=== PATIENT | female | born 1940 | race Caucasian/White ===

== ENCOUNTER → 2016-06-08 | Outpatient (CLI) | payer MEDICARE, OTHER ==
--- NOTE | 2016-06-08 13:38 | RAD ---
EXAM: Right wrist, 4 views. HISTORY: Pain. COMPARISON: None. FINDINGS: Frontal, lateral, oblique and lingular views of the right wrist are obtained. There is mild triscaphe the and moderate first carpometacarpal joint space narrowing. There is right first metacarpal metacarpal subchondral sclerosis and moderate marginal spurring. This includes a prominent fragmented spur. There is wrist soft tissue swelling. No fracture is seen. IMPRESSION: 1. 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 2. Right wrist soft tissue swelling.
== END | disposition home or self-care (01) ==
LOC: DXRADRC 13:23
PROVIDERS: ATTEND Physician Assistant Medical
DX: M19.031 Primary osteoarthritis, right wrist (principal); M25.431 Effusion, right wrist; Z91.81 History of falling
CPT/HCPCS: 73110

== ENCOUNTER → 2016-06-30 | Outpatient (CLI) | payer MEDICARE, OTHER ==
--- NOTE | 2016-06-30 15:07 | RAD ---
Left knee, 3 views, 06/30/2016: History: Knee and lumbar pain The bony structures are demineralized. There is severe narrowing of the medial compartment of the knee joint with sclerosis and irregularity of the articular surfaces. There is moderate marginal spurring at the knee joint. There is mild chronic lateral subluxation of the tibia relative to the distal femur. There is severe narrowing at the patellofemoral articulation. Periarticular calcifications are compatible with multiple loose bodies. No acute fracture or dislocation is identified. IMPRESSION: 1. Severe degenerative change with multiple loose bodies in the knee joint. 2. No acute bony abnormality is detected. Lumbar spine, 5 views, 06/30/2016: History: Pain There is a minimal lumbar scoliosis. The lumbar vertebral heights are well-maintained. There is mild disc space narrowing and moderate spurring at multiple levels in the lumbar spine. There are moderate degenerative changes involving multiple facet joints bilaterally, most severe in the lower lumbar spine. There is a slight reverse spondylolisthesis at L2-3 and L3-4 due to facet joint arthropathy. No fracture is identified. Moderate aortic calcific plaquing is present. IMPRESSION: 1. Moderately severe multilevel degenerative change as described above. 2. No acute bony abnormality is detected.
== END | disposition home or self-care (01) ==
LOC: DXRADRC 10:24
PROVIDERS: ATTEND Physician Assistant
DX: M23.42 Loose body in knee, left knee (principal); M54.5 Low back pain
CPT/HCPCS: 72110; 73562

== ENCOUNTER → 2017-01-14 | Outpatient (CLI) | payer MEDICARE, OTHER ==
--- NOTE | 2017-01-27 15:15 | RAD ---
DATE: 01/14/2017 EXAM: MAMMO ALICIA SCREENING BILATERAL Bilateral Screening Digital 2D and 3D Mammogram HISTORY: Screening Mammogram COMPARISON: Screening mammogram 01/11/2015, 01/01/2014, 01/11/2013 This study was interpreted with the benefit of Computerized Aided Detection (CAD). The breast parenchyma shows scattered fibroglandular densities. Breast parenchyma level B. FINDINGS: Bilateral digital 2-D and 3-D tomosynthesis CC and MLO views. There is an asymmetry in the right breast, middle depth and 4 cm from the nipple only seen on the CC view. No suspicious mass, calcification or architectural distortion in the left breast. IMPRESSION: Asymmetry in the right breast, middle depth only seen on CC view. Diagnostic right breast mammogram to include spot compression CC and full field ML views. BI-RADS CATEGORY: 0 INCOMPLETE: NEEDS ADDITIONAL IMAGING EVALUATION AND/OR PRIOR MAMMOGRAMS FOR COMPARISON. RECOMMENDED FOLLOW-UP: ADD ADDITIONAL IMAGING PQRS compliance statement: Patient information was entered into a reminder system with a target due date for the next mammogram. Mammography is a sensitive method for finding small breast cancers, but it does not detect them all and is not a substitute for careful clinical examination. A negative mammogram does not negate a clinically suspicious finding and should not result in delay in biopsying a clinically suspicious abnormality. "Our facility is accredited by the [employer] Mammography Program."
== END | disposition home or self-care (01) ==
LOC: MAMMO 09:08
PROVIDERS: ATTEND Physician Assistant
DX: Z12.31 Encounter for screening mammogram for malignant neoplasm of breast (principal)
CPT/HCPCS: 77063; G0202; 77067

== ENCOUNTER → 2017-02-15 | Outpatient (CLI) | payer MEDICARE, OTHER ==
--- NOTE | 2017-02-15 15:26 | RAD ---
DATE: 02/15/2017 EXAM: DIGITAL DIAGNOSTIC RT, BREAST RIGHT HISTORY: Asymmetry right breast COMPARISON: 01/14/2017 This study was interpreted with the benefit of Computerized Aided Detection (CAD). FINDINGS: Breast Density: HETERO The breast parenchyma Is heterogeneouslyy dense, which could reduce sensitivity of mammography. Breast parenchyma level C. Spot views of the right breast demonstrates persistence of a small nodule in the right mid upper outer quadrant of the breast. Targeted views of the ultrasound demonstrated no definite evidence of mass or lesion in this region. IMPRESSION: Probably benign findings. Recommend right breast mammogram in 6 months. BI-RADS CATEGORY: 3 PROBABLE BENIGN-SHORT TERM F/U RECOMMENDED FOLLOW-UP: 6M 6 MONTH FOLLOW-UP PQRS compliance statement: Patient information was entered into a reminder system with a target due date 08/16/2017 for the next mammogram. Mammography is a sensitive method for finding small breast cancers, but it does not detect them all and is not a substitute for careful clinical examination. A negative mammogram does not negate a clinically suspicious finding and should not result in delay in biopsying a clinically suspicious abnormality. "Our facility is accredited by the [employer] Mammography Program."
== END | disposition home or self-care (01) ==
LOC: MAMMO 13:50
PROVIDERS: ATTEND Physician Assistant
DX: N64.89 Other specified disorders of breast (principal)
CPT/HCPCS: 76641; G0206; 77065

== ENCOUNTER 2017-07-07 10:41 | Observation (INO) | payer MEDICARE, OTHER ==
[~2017-07-07] VITALS: Ht 157.5 cm; Wt 69.4 kg
[2017-07-07] MEDS ORDERED: HYDROcodone/APAP 5/325MG 1 TAB TABLET PO ONE (11:15)
--- NOTE | 2017-07-07 11:26 | PHYS DOC ---
Past History Past Medical History: Anemia, Asthma Past Surgical History: Appendectomy, Cholecystectomy, Other Alcohol Use: None Drug Use: None Adult General Chief Complaint Chief Complaint: KNEE INJURY HPI HPI Patient is a 77 year old female who presents with left knee injury. The patient states this morning she tripped over her cat & fell forward onto left knee on concrete floor. Denies head trauma or loss of consciousness. No syncope contributing to this fall. Bearing weight with difficulty using a cane , since the time of injury. Denies other injuries. She had a previous arthroscopy but otherwise denies knee surgeries or injuries. She takes medication for left lower extremity arthritis. Denies syncope or lightheadedness contributing to fall. Review of Systems Review of Systems Constitutional: Denies fever or chills HENT: Denies nasal congestion or sore throat Respiratory: Denies cough or shortness of breath Cardiovascular: Denies chest pain or edema GI: Denies abdominal pain, nausea, vomiting Musculoskeletal: Reports knee pain Integument: Denies rash or skin lesions Neurologic: Denies headache, focal weakness or sensory changes All other systems were reviewed and found to be within normal limits, except as documented in this note. Current Medications Current Medications Current Medications Medications (Trade) Dose Ordered Sig/Teresa Start Time Stop Time Status Last Admin Dose Admin Acetaminophen/ Hydrocodone Bitart (Lortab 5/325) 1 tab 1X ONCE 07/07/17 11:15 07/07/17 11:17 DC 07/07/17 11:02 1 TAB Allergies Allergies Allergies Coded Allergies Type Severity Reaction Last Updated Verified No Known Drug Allergies 07/07/17 No Physical Exam Physical Exam Constitutional: Well developed, well nourished, no acute distress, non-toxic appearance. HENT: Normocephalic, atraumatic, bilateral external ears normal, oropharynx moist, nose normal. Eyes: conjunctiva normal, no discharge. Neck: supple, no stridor. Cardiovascular: no edema. Lungs & Thorax: no respiratory distress. Abdomen: nondistended. Skin: Warm, dry, no erythema, no rash. Back: No tenderness. Extremities: left knee mild effusion without deformity, diffuse anterior tenderness as well as medial & lateral joint line tenderness, able to flex/ extend & straight leg raise although all are limited by pain, negative anterior/ posterior drawer, stable to valgus/varus stress, dp/pt 2+, sensation intact to foot, moves toes. left hip no swelling or deformity but laterally there is tenderness, able to flex/extend also with pain. Neurologic: Alert and oriented X 3, no focal deficits noted. Psychologic: Affect normal, judgement normal, mood normal. Current Patient Data Vital Signs Vital Signs Date Time Temp Pulse Resp B/P (MAP) Pulse Ox O2 Delivery O2 Flow Rate FiO2 07/07/17 11:02 Room Air 07/07/17 10:55 97.5 71 16 98 EKG EKG [] Radiology/Procedures Radiology/Procedures PROCEDURE: HIP LEFT 2V WITH PELVIS KNEE LEFT 4V, HIP LEFT 2V WITH PELVIS Clinical Indication: FALL, LEFT KNEE PAIN, PAINFUL TO STRAIGHTEN LEG Comparison: Left knee, 3 views, June 30, 2016. Findings: Degenerative arthropathy of the bilateral hips. No acute pelvic fracture. No acute left hip fracture. Phleboliths in the pelvis. There is knee joint effusion. There is severe degenerative arthropathy of the knee, unchanged from prior study. There is a tiny lucency of the mid patella posteriorly that is not seen previously. Incomplete fracture cannot be excluded. IMPRESSION: 1. Tiny lucency of the mid patella posteriorly, cannot exclude incomplete fracture. 2. Small knee joint effusion. 3. No acute fracture of the left hip. Electronically signed by: Amadou Rivas MD (07/07/2017 11:47 AM) [id number] DICTATED AND SIGNED BY: AMADOU RIVAS MD DATE: 07/07/17 1140 PROCEDURE: CT PELVIS WO CONTRAST PQRS Compliance Statement: One or more of the following individualized dose reduction techniques were utilized for this examination: 1. Automated exposure control 2. Adjustment of the mA and/or kV according to patient size 3. Use of iterative reconstruction technique CT PELVIS WO CONTRAST Clinical Indication: FALL, left hip pain Comparison: Left hip radiographs, earlier same day. TECHNIQUE: Helical CT imaging of the pelvis is performed without IV contrast. Findings: There is facet hypertrophy in the lower lumbar spine. Minimal grade 1 anterolisthesis of L5 on S1. No acute pelvic fracture is identified. No acute hip fracture. Degenerative arthropathy of the hips. DJD of the symphysis pubis. Well-corticated lucency of the posterior and lateral left acetabulum. Similar less conspicuous finding is seen on the contralateral side. Finding probably degenerative or due to old injury. Sigmoid colon diverticulosis without inflammation. Urinary bladder is mildly distended, otherwise normal. Uterus surgically absent. No pelvic free fluid. IMPRESSION: No acute hip fracture. Electronically signed by: Amadou Rivas MD (07/07/2017 12:35 PM) [id number] DICTATED AND SIGNED BY: AMADOU RIVAS MD DATE: 07/07/177 PROCEDURE: CT LOWER EXTREMITY WO LEFT PQRS Compliance Statement: One or more of the following individualized dose reduction techniques were utilized for this examination: 1. Automated exposure control 2. Adjustment of the mA and/or kV according to patient size 3. Use of iterative reconstruction technique CT LOWER EXTREMITY WO LEFT Clinical Indication: FALL TODAY, RULE OUT POSSIBLE PATELLA FRATURE
PREVIOUS XRAYS DONE EARLIER TODAY Comparison: Left knee radiographs, earlier same day. TECHNIQUE: Helical CT imaging of the left knee is performed without IV contrast. Findings: There is large lipohemarthrosis. There is acute traumatic fracture of the patella. There is a nondisplaced vertically oriented fracture line, coronal image 8. There is a nondisplaced transverse fracture line posteriorly that is incompletely, does not reach the anterior cortex. This fracture is well seen on coronal image 12. Severe degenerative arthropathy of the knee. No acute fracture of the femur, tibia, or fibula. There are several loose joint bodies posteriorly. There is moderate Askew's cyst that contains loose joint body. IMPRESSION: 1. Acute traumatic nondisplaced fracture of the patella. There are transverse and vertical fracture lines. 2. Large lipohemarthrosis. 3. Severe degenerative arthropathy of the left knee. 4. There are several loose joint bodies. Electronically signed by: Amadou Rivas MD (07/07/2017 12:27 PM) [id number] DICTATED AND SIGNED BY: AMADOU RIVAS MD DATE: 07/07/17 1221[] Course & Med Decision Making Course & Med Decision Making Pertinent Labs and Imaging studies reviewed. (See chart for details) The patient presents with hip and knee injury. Initially she was just complaining of knee pain but on further evaluation she does have quite a bit of hip tenderness as well and is unable to bear weight. Neurovascularly intact. Obtained x-ray which shows no hip fracture, possible patellar abnormality. Obtain CT to evaluate for occult hip fracture as well as CT of the need to definitively identify fracture. She has a comminuted nondisplaced patellar fracture. Knee immobilizer was applied, neurovascularly intact after placement. The patient was highly motivated to go home rather than be admitted to the hospital. She is quite active for her age and lives in her own home. She became lightheaded and was unable to stand independently. I don't think this is a viable discharge plan and the patient agrees. Discussed with Dr. Wall, [place] orthopedic surgeon. Advises likely nonoperative management. He agrees with admission to the hospital due to inability to safely ambulate, but does not necessarily need inpatient orthopedic surgery consultation. Discussed with Dr. Pascual who agrees to admit to inpatient status for PT & pain management. The patient is admitted in stable condition. Dragon Disclaimer Dragon Disclaimer This electronic medical record was generated, in whole or in part, using a voice recognition dictation system. Departure Departure: Impression: Primary Impression: Patellar fracture Disposition: HOME, SELF-CARE Condition: STABLE Referrals: CLAY MONAHAN (PCP) Patient Instructions: Patellar Fracture, Adult Additional Instructions: You were seen in the emergency department today for patella (kneecap) fracture. Please wear the immobilizer, avoid weightbearing, keep elevated, apply ice. Use norco for severe pain. This medication can make you drowsy; do not drink alcohol or drive. Follow up in the orthopedic clinic with Dr. Wall - call [phone] to schedule an appointment. Come back for numbness/weakness, cold foot, severe pain, any otherwise worsening condition. Scripts Hydrocodone Bit/Acetaminophen (NORCO 5-325 TABLET) 1 Each Tablet 1-2 TAB PO Q4-6HRS Y for SEVERE PAIN, #10 TAB Prov: JUDY WOODS MD 07/07/17 Problem Qualifiers Primary Impression: Patellar fracture Encounter type: initial encounter Fracture type: closed Fracture morphology : comminuted Fracture alignment: nondisplaced Laterality: left Qualified Codes: S82.045A - Nondisplaced comminuted fracture of left patella, initial encounter for closed fracture JUDY WOODS MD Jul 07, 2017 11:26
--- NOTE | 2017-07-07 11:50 | RAD ---
KNEE LEFT 4V, HIP LEFT 2V WITH PELVIS Clinical Indication: FALL, LEFT KNEE PAIN, PAINFUL TO STRAIGHTEN LEG Comparison: Left knee, 3 views, June 30, 2016. Findings: Degenerative arthropathy of the bilateral hips. No acute pelvic fracture. No acute left hip fracture. Phleboliths in the pelvis. There is knee joint effusion. There is severe degenerative arthropathy of the knee, unchanged from prior study. There is a tiny lucency of the mid patella posteriorly that is not seen previously. Incomplete fracture cannot be excluded. IMPRESSION: 1. Tiny lucency of the mid patella posteriorly, cannot exclude incomplete fracture. 2. Small knee joint effusion. 3. No acute fracture of the left hip. Electronically signed by: Amadou Rivas MD (07/07/2017 11:47 AM) [id number]
--- NOTE | 2017-07-07 12:31 | RAD ---
PQRS Compliance Statement: One or more of the following individualized dose reduction techniques were utilized for this examination: 1. Automated exposure control 2. Adjustment of the mA and/or kV according to patient size 3. Use of iterative reconstruction technique CT LOWER EXTREMITY WO LEFT Clinical Indication: FALL TODAY, RULE OUT POSSIBLE PATELLA FRATURE
PREVIOUS XRAYS DONE EARLIER TODAY Comparison: Left knee radiographs, earlier same day. TECHNIQUE: Helical CT imaging of the left knee is performed without IV contrast. Findings: There is large lipohemarthrosis. There is acute traumatic fracture of the patella. There is a nondisplaced vertically oriented fracture line, coronal image 8. There is a nondisplaced transverse fracture line posteriorly that is incompletely, does not reach the anterior cortex. This fracture is well seen on coronal image 12. Severe degenerative arthropathy of the knee. No acute fracture of the femur, tibia, or fibula. There are several loose joint bodies posteriorly. There is moderate Askew's cyst that contains loose joint body. IMPRESSION: 1. Acute traumatic nondisplaced fracture of the patella. There are transverse and vertical fracture lines. 2. Large lipohemarthrosis. 3. Severe degenerative arthropathy of the left knee. 4. There are several loose joint bodies. Electronically signed by: Amadou Rivas MD (07/07/2017 12:27 PM) [id number]
--- NOTE | 2017-07-07 12:38 | RAD ---
PQRS Compliance Statement: One or more of the following individualized dose reduction techniques were utilized for this examination: 1. Automated exposure control 2. Adjustment of the mA and/or kV according to patient size 3. Use of iterative reconstruction technique CT PELVIS WO CONTRAST Clinical Indication: FALL, left hip pain Comparison: Left hip radiographs, earlier same day. TECHNIQUE: Helical CT imaging of the pelvis is performed without IV contrast. Findings: There is facet hypertrophy in the lower lumbar spine. Minimal grade 1 anterolisthesis of L5 on S1. No acute pelvic fracture is identified. No acute hip fracture. Degenerative arthropathy of the hips. DJD of the symphysis pubis. Well-corticated lucency of the posterior and lateral left acetabulum. Similar less conspicuous finding is seen on the contralateral side. Finding probably degenerative or due to old injury. Sigmoid colon diverticulosis without inflammation. Urinary bladder is mildly distended, otherwise normal. Uterus surgically absent. No pelvic free fluid. IMPRESSION: No acute hip fracture. Electronically signed by: Amadou Rivas MD (07/07/2017 12:35 PM) [id number]
[2017-07-07] MEDS ORDERED: HYDR-971 PO (13:26)
[2017-07-07 13:57] LABS: BASO # 0.1 x10^3/uL (0.0-0.2); BASO % 1 % (0-3); EOS # 0.1 x10^3/uL (0.0-0.7); EOS % 2 % (0-3); HEMATOCRIT 40.6 % (36.0-47.0); HEMOGLOBIN 14.3 g/dL (12.0-15.5); LYMPH # 1.8 x10^3/uL (1.0-4.8); LYMPH % 31 % (24-48); MEAN CORPUSCULAR HEMOGLOBIN 31 pg (25-35); MEAN CORPUSCULAR HGB CONC 35 g/dL (31-37); MEAN CORPUSCULAR VOLUME 87 fL (79-100); MONO # 0.5 x10^3/uL (0.0-1.1); MONO % 9 % (0-9); NEUT # 3.4 x10^3uL (1.8-7.7); NEUT % 58 % (31-73); PLATELET COUNT 218 x10^3/uL (140-400); RED BLOOD COUNT 4.65 x10^6/uL (3.50-5.40); RED CELL DISTRIBUTION WIDTH 12.6 % (11.5-14.5); WHITE BLOOD COUNT 5.9 x10^3/uL (4.0-11.0)
[2017-07-07] MEDS ORDERED: ACETAMINOPHEN 325 MG TABLET PO PRN (14:00)
[2017-07-07] MEDS ORDERED: ONDANSETRON PF 4 MG/2 ML VIAL. IV PRN (14:00)
[2017-07-07 14:12] LABS: ALBUMIN 3.5 g/dL (3.4-5.0); ALBUMIN/GLOBULIN RATIO 1.1 (1.0-1.7); CALCIUM 8.7 mg/dL (8.5-10.1); CREATININE 0.7 mg/dL (0.6-1.0); GFR 81.4; POTASSIUM 3.3 mmol/L (3.5-5.1); TOTAL BILIRUBIN 0.4 mg/dL (0.2-1.0); TOTAL PROTEIN 6.8 g/dL (6.4-8.2)
[2017-07-07 14:41] VITALS: BP 160/62
[2017-07-07] MEDS ORDERED: BENA20TA2 PO (15:11)
[2017-07-07] MEDS ORDERED: ATOR10TA60 PO (15:11)
[2017-07-07] MEDS ORDERED: CITA20TA6 PO (15:11)
[2017-07-07] MEDS ORDERED: MONT10TA9 PO (15:11)
[2017-07-07] MEDS ORDERED: FLUT1DIS5 INH (15:11)
[2017-07-07] MEDS ORDERED: CELE-20 PO (15:11)
[2017-07-07] MEDS ORDERED: POTASSIUM CHLORIDE 20 MEQ TABLET.ER. PO ONE (16:45)
--- NOTE | 2017-07-07 16:46 | HP ---
ADMIT DATE: 07/07/2017 HISTORY OF PRESENT ILLNESS: The patient is a 77-year-old female patient who came to the Emergency Room complaining of left knee pain. The patient states that this morning, she tripped over her cat and fell forward on to her left knee on the concrete floor. She denied any head trauma or loss of consciousness. No syncope, dizziness, or lightheadedness. She was bearing weight with difficulty using a cane since the time of injury. She had a previous arthroscopy, but otherwise denied any knee surgeries or injuries. She was investigated in the Emergency Room. She had a CT scan which showed acute traumatic nondisplaced fracture of the patella. There are transverse and vertical fracture lines. She has 2 large lipohemarthrosis and 3 severe degenerative arthropathy of the left knee. There are several loose joint bodies and the patient was admitted after discussion with Dr. Wall who did not offer any surgical intervention and recommended using a knee immobilizer and nonweightbearing status. She was basically admitted for pain management, DVT prophylaxis, and also to start the process of physical and occupational therapy. PAST MEDICAL HISTORY: Significant for hypertension, bronchial asthma, osteoarthritis. She also has hyperlipidemia. PAST SURGICAL HISTORY: Remarkable for bilateral cataract extraction, tonsillectomy, appendectomy, cholecystectomy, total abdominal hysterectomy, bilateral salpingo-oophorectomy. She has also right bunionectomy and right breast lumpectomy. She has history of breast cancer. She has cyst removed from the face and spinal fusion and laminectomy and coccygeal resection. ALLERGIES: She has no known drug allergies. MEDICATIONS: She is currently on the following medications: She is on atorvastatin 10 mg at bedtime, benazepril 20 mg once a day, Celebrex 200 mg twice a day, hydrocodone/APAP 5/325 1-2 tablets every 4-6 hours. She is on citalopram hydrobromide 20 mg daily, Advair Diskus 500/50 one puff twice a day, and montelukast sodium 10 mg at bedtime. FAMILY HISTORY: She has 1 younger brother who has had diabetes. Her father was because of myocardial infarction and what seemed to be severe sepsis with multiple organ failure. Mother of breast cancer. SOCIAL HISTORY: She is and lives with her who has dementia. She has 4 daughters, one of them at the younger age. She has her grandchildren living with her. She never smoked. She does not drink alcohol or use any recreational drugs. REVIEW OF SYSTEMS: The patient denied any blurring of vision. She had bilateral cataract extractions, but denied any glaucoma or macular degeneration. Denied any earache, tinnitus, or sensorineural deafness. Denied any nosebleeds, stuffy nose, or postnasal drip. Denied any sore throat, sore tongue, toothache, hoarseness of voice, or difficulty swallowing. Denied any nausea, vomiting, diarrhea, or constipation. Denied any hematemesis, melena, or hematochezia. Denied any dysuria, frequency, or hematuria. Denied any chest pain, shortness of breath, orthopnea, or significant dyspnea. Denied any cough, phlegm, or hemoptysis. Denied any chills, rigors, or fever. PHYSICAL EXAMINATION: GENERAL: On arrival to the Emergency Room, she looked well and was clearly in no apparent respiratory distress, slightly pale, but no jaundice, cyanosis, or thyromegaly. No jugular venous distention. No limb edema. VITAL SIGNS: Her heart rate was 71, blood pressure was 158/59, temperature was 97.5, respiratory rate was 16, and oxygen saturation was 98%. HEAD, EYES, EARS, NOSE, AND THROAT: Showed normocephalic, atraumatic. NECK: Supple. HEART: Showed normal first and second heart sounds with no gallop, rub, or murmur. CHEST: Clear to auscultation. No crepitation or rhonchi. ABDOMEN: Distended, soft, nontender. NEUROLOGIC: She is awake, alert, responding appropriately. All cranial nerves intact. She moves her both upper extremities and right lower extremity to greater extent. Her lower extremity was held in knee immobilizer. LABORATORY DATA: Her lab work while in the Emergency Room showed that her white cell count to be 5900, hemoglobin 14, hematocrit 41, MCV 87, and platelet count 218,000 with normal manual differential. Her chemistry showed a serum sodium of 139, potassium 3.3, chloride 103, bicarbonate 29, anion gap of 7, BUN 13, creatinine 0.7. Estimated GFR was 81 mL per minute. Her glucose was 102. Calcium was 8.7. Total bilirubin, AST, ALT, alkaline phosphatase were normal. Her total protein was 6.8. Albumin was 3.5. Her x-rays of the knee showed that there is tiny lucency of the mid patella posteriorly, cannot exclude incomplete fracture, small knee joint effusion, no acute fracture of the left hip. The x-ray of the hip and pelvis showed there is degenerative arthropathy of the bilateral hip joints. No acute pelvic fracture, no acute left hip fracture, phleboliths in the pelvis. The CT scan of the pelvis showed no acute hip fracture and lower extremity CT scan showed that she has acute traumatic nondisplaced fracture of the patella. There are transverse and vertical fracture lines. She has also large lipohemarthrosis, severe degenerative arthropathy of the left knee, and there are several loose joint bodies. ASSESSMENT AND PLAN: The patient was admitted to [address] [place] [address] for pain management and deep vein thrombosis prophylaxis. We will start her on sequential compression device and start the process of physical and occupational therapy. FADI VERDUGO MD DR: SALEEM/taj JOB#: [id number] / [id number]
[2017-07-07] MEDS: HYDROcodone/APAP 5/325MG 1 TAB TABLET PO PRN (19:19)
[2017-07-07 19:20] VITALS: BP 165/93
[2017-07-07] MEDS: ALBUTEROL SULFATE 2.5 MG/3 ML NEBU. NEB SCH (20:00)
[2017-07-07] MEDS: BUDESONIDE 0.5 MG/2 ML NEBU NEB SCH (20:00)
[2017-07-07] MEDS: CELECOXIB 200 MG CAPSULE PO SCH (20:19)
[2017-07-07] MEDS: POTASSIUM CHLORIDE 20 MEQ TABLET.ER. PO SCH (20:20)
[2017-07-07 20:49] VITALS: BP 165/65
[2017-07-07] MEDS ORDERED: NON FORMULARY ITEM (Fluticasone/Salmeterol (Advair 500-50 Diskus) 1 PUFF) INH SCH (21:00)
[2017-07-07] MEDS ORDERED: MORPHINE SULFATE 4 MG/ML DISP.SYRIN. IV PRN (22:15)
[2017-07-07 22:56] VITALS: BP 149/62
[2017-07-08 05:05] VITALS: BP 163/71
[2017-07-08] MEDS: ALBUTEROL SULFATE 2.5 MG/3 ML NEBU. NEB SCH ×2 (05:32→09:46)
[2017-07-08 06:50] LABS: CALCIUM 8.6 mg/dL (8.5-10.1); CREATININE 0.6 mg/dL (0.6-1.0); GFR 97.2
[2017-07-08] MEDS: POTASSIUM CHLORIDE 20 MEQ TABLET.ER. PO SCH (08:40)
[2017-07-08] MEDS: CELECOXIB 200 MG CAPSULE PO SCH (08:40)
[2017-07-08] MEDS ORDERED: LISINOPRIL 20 MG TABLET PO SCH (09:00)
[2017-07-08] MEDS ORDERED: CITALOPRAM 20 MG TABLET. PO SCH (09:00)
[2017-07-08] MEDS ORDERED: ATORVASTATIN CALCIUM 10 MG TABLET. PO SCH (09:00)
[2017-07-08] MEDS ORDERED: MONTELUKAST 10 MG TABLET. PO SCH (09:00)
[2017-07-08] MEDS ORDERED: DOCUSATE SODIUM 100 MG CAPSULE PO SCH (09:00)
[2017-07-08] MEDS: BUDESONIDE 0.5 MG/2 ML NEBU NEB SCH (09:46)
[2017-07-08 11:04] VITALS: BP 129/62
[2017-07-08] MEDS: HYDROcodone/APAP 5/325MG 1 TAB TABLET PO PRN (14:18)
--- NOTE | 2017-07-08 23:31 | DS ---
DATE OF DISCHARGE: 07/08/2017 HISTORY OF PRESENT ILLNESS: The patient is a 77-year-old female patient who unfortunately tripped over her cat and fell forward on her left knee on the concrete floor. She denied any trauma or loss of consciousness, syncope, dizziness or lightheadedness. She was bearing weight with difficulty using a cane since the time of injury. She had previous arthroscopic surgery, but otherwise denied any knee surgeries and injuries. She was investigated in the Emergency Room and had a CT scan, which showed that she had acute traumatic nondisplaced fracture of the patella. Cris are transverse and vertical fracture lines, she has two large lipohemarthrosis and severe degenerative arthropathy of the left knee, there are also several loose joint bodies and the patient was admitted after discussion with Dr. Wall, who did not offer any surgical intervention, recommended using a knee immobilizer and nonweightbearing status. She was admitted for pain management, DVT prophylaxis, and start the process of physical and occupational therapy. She was seen by the physical therapist today and apparently, did very well, ambulating with a walker or without weightbearing, transferring from bed to the chair, and bedside commode, and it was felt that discharge, she will be safe as she has a large number of family members including [employer]'s and nursing staff, and a walker was ordered and we deliver to her house tomorrow. PHYSICAL EXAMINATION: GENERAL: When I saw her today, she looked well and was clearly in no apparent respiratory distress. There is no pallor, jaundice, cyanosis, or thyromegaly. No jugular venous distension. No limb edema. VITAL SIGNS: Her heart rate was 79, blood pressure 129/62, temperature was 98.2, respiratory rate 20, and oxygen saturation was 97%. HEAD, EYES, EARS, NOSE, AND THROAT: Showed normocephalic, atraumatic. NECK: Supple. HEART: Showed normal first and second heart sounds with no gallop, rub or murmur. CHEST: Clear to auscultation. No crepitation or rhonchi. ABDOMEN: Distended, soft, and nontender. No guarding, rigidity, no organomegaly. All hernial orifices intact. Bowel sounds normal. NEUROLOGIC: She is awake, alert, responding appropriately. Cranial nerves are intact. She moves her upper extremities and right lower extremity too much good extent than her left lower extremity as she is in left knee immobilizer. Her intake was 800, no output was recorded. LABORATORY DATA: Her lab work as of yesterday showed a white cell count 5900, hemoglobin 14, hematocrit 42, MCV 87, and platelet count of 218,000. Her serum sodium was 137, potassium 4, chloride 103, bicarbonate 26, anion gap of 8, BUN 11, creatinine was 0.6, estimated GFR was 97 mL per minute. Her glucose 132 and calcium was 8.9. DISCHARGE MEDICATIONS: She was discharged home to continue on the following medications: Atorvastatin calcium 10 mg at bedtime, benazepril 20 mg once a day, Celebrex 200 mg twice a day, citalopram hydrobromide 20 mg once a day, Advair Diskus 500/50 one puff twice a day. She is also on montelukast for Singulair 10 mg at bedtime, and hydrocodone/APAP 5/325 one tablet every 4 hours. FINAL DISCHARGE DIAGNOSES: 1. Left patellar fracture. 2. Hypertension. 3. Bronchial asthma. 4. Generalized osteoarthritis. 5. Hyperlipidemia. FADI VERDUGO MD DR: SALEEM/taj JOB#: [id number] / [id number]
== END 2017-07-08 14:35 | disposition home health service (06) ==
LOC: ER 10:41 → INTOOBSV 13:35 → 1 SOUTH 13:35 → ER 14:25
PROVIDERS: ADMIT Internal Medicine; ATTEND Internal Medicine
DX: S82.002A Unspecified fracture of left patella, initial encounter for closed fracture (principal); W01.0XXA Fall on same level from slipping, tripping and stumbling without subsequent striking against object, initial encounter; Y93.89 Activity, other specified; Y92.89 Other specified places as the place of occurrence of the external cause; Y99.8 Other external cause status; I10 Essential (primary) hypertension; J45.909 Unspecified asthma, uncomplicated; M19.90 Unspecified osteoarthritis, unspecified site; E78.5 Hyperlipidemia, unspecified; Z80.3 Family history of malignant neoplasm of breast; Z82.49 Family history of ischemic heart disease and other diseases of the circulatory system; Z83.3 Family history of diabetes mellitus; Z85.3 Personal history of malignant neoplasm of breast; Z98.1 Arthrodesis status
CPT/HCPCS: 36415; 72192; 73502; 73564; 73700; 80048; 80053; 85025; 94640; 96374; 96375; 96376; 97161; 97165; 99285; G0378; G8987; G8988; G8989; J2270; J3010; J7613; J7626; G0379

== ENCOUNTER → 2017-08-04 | Outpatient (CLI) | payer MEDICARE, OTHER ==
[2017-07-08 11:04] VITALS: BP 129/62
[~2017-08-04] MED LIST: ATOR10TA60 PO; BENA20TA2 PO; CELE-20 PO; CITA20TA6 PO; FLUT1DIS5 INH; HYDR-971 PO; MONT10TA9 PO
--- NOTE | 2017-08-04 14:54 | RAD ---
EXAM: Left knee, 3 views. HISTORY: Fracture follow-up. COMPARISON: 07/07/2017. FINDINGS: Frontal, lateral and oblique views of the left knee are obtained. There has been no significant change in a nondisplaced fractures through the mid patella. There is severe medial compartment joint space narrowing and subchondral sclerosis with bony remodeling. There is severe tricompartmental spurring. There is a moderate joint effusion. There are joint loose bodies. There is suspected bone demineralization. IMPRESSION: 1. No significant change in a nondisplaced patellar fracture. 2. Severe medial compartment predominant tricompartmental osteoarthritis of the left knee with associated joint loose body. 3. Moderate joint effusion, slightly decreased compared to the prior study. Electronically signed by: Anisha Soares MD (08/04/2017 2:50 PM) [id number]
== END | disposition home or self-care (01) ==
LOC: PMG 14:09
PROVIDERS: ATTEND Physician Assistant
DX: S82.002D Unspecified fracture of left patella, subsequent encounter for closed fracture with routine healing (principal); M17.12 Unilateral primary osteoarthritis, left knee; M25.462 Effusion, left knee; X58.XXXD Exposure to other specified factors, subsequent encounter
CPT/HCPCS: 73562

== ENCOUNTER → 2017-09-21 | Outpatient (CLI) | payer MEDICARE, OTHER ==
[~2017-09-21] MED LIST changes: -BENA20TA2 PO; +BENA20TA4 PO
--- NOTE | 2017-09-21 09:29 | RAD ---
DATE: 09/21/2017 EXAM: MAMMO ALICIA DIAG RT HISTORY: 6 month follow-up, previous breast cancer COMPARISON: 02/15/2017, 01/14/2017 This study was interpreted with the benefit of Computerized Aided Detection (CAD). The breast parenchyma is heterogeneously dense, which could reduce sensitivity of mammography. Breast parenchyma level C. FINDINGS: 2-D and 3-D tomosynthesis imaging of the right breast was performed in CC and MLO projections. No suspicious breast densities currently seen. A tiny nodular opacity seen on the previous study is no longer evident. No new or enlarging right breast densities are evident. Scattered benign type calcifications are present. No suspicious microcalcifications have developed. IMPRESSION: There is no mammographic evidence of malignancy in the right breast. Follow-up bilateral mammography in 6 months and then at yearly intervals is suggested. BI-RADS CATEGORY: 3 PROBABLY BENIGN FINDING(S)-SHORT INTERVAL FOLLOW-UP SUGGESTED RECOMMENDED FOLLOW-UP: 6M 6 MONTH FOLLOW-UP PQRS compliance statement: Patient information was entered into a reminder system with a target due date for the next mammogram. Mammography is a sensitive method for finding small breast cancers, but it does not detect them all and is not a substitute for careful clinical examination. A negative mammogram does not negate a clinically suspicious finding and should not result in delay in biopsying a clinically suspicious abnormality. "Our facility is accredited by the [employer] Mammography Program."
== END | disposition home or self-care (01) ==
LOC: MAMMO 08:41
PROVIDERS: ATTEND Physician Assistant
DX: R92.8 Other abnormal and inconclusive findings on diagnostic imaging of breast (principal); I10 Essential (primary) hypertension; E78.5 Hyperlipidemia, unspecified; J45.909 Unspecified asthma, uncomplicated; Z85.3 Personal history of malignant neoplasm of breast
CPT/HCPCS: 77065; G0279; 77061

== ENCOUNTER → 2018-02-22 | Outpatient (CLI) | payer OTHER ==
[~2018-02-22] MED LIST changes: +HYDR-3165 PO; -HYDR-971 PO
--- NOTE | 2018-02-22 16:38 | RAD ---
3 view study of the left knee Clinical indications: Fracture last summer. Following gadolinium month ago. Left knee pain. COMPARISON: August 04, 2017. FINDINGS: No acute-appearing fracture is evident. No dislocation or osteolytic process is evident. There is severe tricompartmental primary degenerative osteoarthritis of the left knee. There is a radiopaque loose body within the medial recess of the suprapatellar joint space. There is a round calcification seen within the posterior aspect of the popliteal fossa which could represent a loose body within the Askew's cyst. Additional radiopaque loose bodies are seen within the posterior tibiofemoral joint compartment. IMPRESSION: Severe tricompartmental primary degenerative osteoarthritis of the left knee. Loose bodies. Electronically signed by: Brice Simental MD (02/22/2018 4:35 PM) [facility]
== END | disposition home or self-care (01) ==
LOC: PMG 09:27
PROVIDERS: ATTEND Physician Assistant
DX: M17.12 Unilateral primary osteoarthritis, left knee (principal); M23.42 Loose body in knee, left knee
CPT/HCPCS: 73562

== ENCOUNTER → 2018-03-11 | Outpatient (CLI) | payer MEDICARE, OTHER ==
--- NOTE | 2018-03-11 08:41 | RAD ---
DATE: 03/11/2018 EXAM: MAMMO ALICIA DIAG BILAT HISTORY: Previous right breast cancer COMPARISON: 09/21/2017 This study was interpreted with the benefit of Computerized Aided Detection (CAD). Breast Density: HETERO The breast parenchyma is heterogenously dense, which could reduce sensitivity of mammography. Breast parenchyma level C. FINDINGS: 2-D and 3-D tomosynthesis imaging was performed in CC and MLO projections. No new or enlarging breast densities are seen. There is unchanged skin thickening on the right presumably on a posttherapeutic basis in this patient with the history of previous right breast cancer. Scattered benign type calcifications are present. No suspicious microcalcifications have developed. IMPRESSION: Stable mammograms without evidence of malignancy. BI-RADS CATEGORY: 2 BENIGN FINDING(S) RECOMMENDED FOLLOW-UP: 12M 12 MONTH FOLLOW-UP PQRS compliance statement: Patient information was entered into a reminder system with a target due date for the next mammogram. Mammography is a sensitive method for finding small breast cancers, but it does not detect them all and is not a substitute for careful clinical examination. A negative mammogram does not negate a clinically suspicious finding and should not result in delay in biopsying a clinically suspicious abnormality. "Our facility is accredited by the [employer] Mammography Program."
== END | disposition home or self-care (01) ==
LOC: MAMMO 07:46
PROVIDERS: ATTEND Physician Assistant
DX: R92.1 Mammographic calcification found on diagnostic imaging of breast (principal); Z85.3 Personal history of malignant neoplasm of breast
CPT/HCPCS: 77066; G0279; 77062